=== PATIENT | male | born 1970 | race African-American/Black ===

== ENCOUNTER 2023-02-02 04:01 | Emergency (ER) | payer BC, MEDICAID ==
[~2023-02-02] VITALS: Ht 190.5 cm; Wt 116.4 kg
[2023-02-02 04:24] VITALS: BP 155/92; O2SAT 100
[2023-02-02] MEDS ORDERED: DEXAMETHASONE 4MG/ML 1ML VIAL IM SCH (05:30)
[2023-02-02] MEDS ORDERED: TOPUD MT (05:59)
[2023-02-02 06:17] VITALS: PULSE 78; RESP 17; TEMP 98.7
== END 2023-02-02 06:19 | disposition home or self-care (01) ==
LOC: ER 04:01
DX: J02.9 Acute pharyngitis, unspecified (principal); E11.9 Type 2 diabetes mellitus without complications; E78.00 Pure hypercholesterolemia, unspecified; I10 Essential (primary) hypertension
CPT/HCPCS: 87430; 87070; 96372; 99283; J1100; Z7610